=== PATIENT | male | born 1940 | race Caucasian/White ===

== ENCOUNTER 2017-10-12 18:38 | Emergency (ER) | payer OTHER ==
[~2017-10-12] VITALS: Ht 160 cm; Wt 104.3 kg
[~2017-10-12 18:38] MED LIST: ALTACE2.5 MG; ALTACE2.5 MG PO; ASA-EC81 MG PO; Altace 5 MG CAPSULE PO; CRESTOR5 MG; DEXAMETHASONE4 MG; LASIX20 MG PO; METFORMIN HCL500 M1; PLAVIX75 MG; SIMVASTATIN20 MG PO; TOPROL XL25 M1 PO; Toprol Xl 25MG TAB PO; XARELTO20 MG PO; ZITHROMAX500 MG; ZOCOR PO
== END 2017-10-12 21:12 | disposition home or self-care (01) ==
LOC: ER 18:38
DX: R13.19 Other dysphagia (principal)

== ENCOUNTER 2019-05-14 09:38 | Emergency (ER) | payer OTHER ==
[~2019-05-14] VITALS: Ht 162.6 cm; Wt 99.8 kg
[2019-05-14] MEDS ORDERED: COZAAR50 MG PO (10:02)
== END 2019-05-14 10:19 | disposition home or self-care (01) ==
LOC: ER 09:38
DX: S50.11XA Contusion of right forearm, initial encounter (principal); W22.8XXA Striking against or struck by other objects, initial encounter; Y93.89 Activity, other specified; Y92.89 Other specified places as the place of occurrence of the external cause; Y99.8 Other external cause status

== ENCOUNTER 2024-05-22 07:34 | Emergency (ER) | payer OTHER ==
[~2024-05-22] VITALS: Ht 152.4 cm; Wt 99.8 kg
[~2024-05-22 07:34] MED LIST changes: +CLONAZEPAM0.5 MG PO; +COZAAR50 MG PO; +FLEET BISACODYL5 MG PO; +GABAPENTIN600 MG PO; +JARDIANCE10 MG PO; +METOPROLOL SUCC25 MG PO; +TRELEGY ELLIPT1 EACH IH
[2024-05-22] MEDS ORDERED: ACETAMINOPHEN 500 MG GEL..CAP PO ONE (10:15)
== END 2024-05-22 11:57 | disposition home or self-care (01) ==
LOC: ER 07:36
DX: M19.072 Primary osteoarthritis, left ankle and foot (principal); M79.672 Pain in left foot; I11.9 Hypertensive heart disease without heart failure; E11.9 Type 2 diabetes mellitus without complications; Z79.84 Long term (current) use of oral hypoglycemic drugs